=== PATIENT | male | born 1980 | race Caucasian/White ===

== ENCOUNTER 2021-08-24 08:29 | Outpatient (CLI) | payer BC, SELFPAY ==
[2021-08-24 12:07] LABS: Cholesterol* 234 mg/dL (90-199); Glucose* 102 mg/dL (60-115); HDL Cholesterol* 47 mg/dL (>=40); LDL Cholesterol Calculated 160 mg/dL (<100); Triglycerides* 135 mg/dL (40-149)
== END 2021-08-24 08:30 | disposition home or self-care (01) ==
LOC: NFLDREF 08:30
PROVIDERS: PCP Family Medicine; Visit Provider Family Medicine
DX: Z00.00 Encounter for general adult medical examination without abnormal findings (principal); Z13.1 Encounter for screening for diabetes mellitus; Z13.6 Encounter for screening for cardiovascular disorders
CPT/HCPCS: 80061; 82947

== ENCOUNTER 2021-09-15 15:30 | Outpatient (CLI) | payer BC, SELFPAY ==
--- NOTE | 2021-09-15 15:30 | MR_ITS ---
[address] [address] Phone:?[phone] Fax:?[phone] Referring Physician Information: Ez Grey [address] [facility] [address] Phone:?[phone] Fax:?[phone] Patient:Patrick Belcher D.O.B:?1980 Sex:?Male Phone:?[phone] [facility] MRN:?[id number] Exam Date:?09/15/2021 ? EXAM: MRI of the RIGHT HAND, without contrast CLINICAL INFORMATION: Male, 41 years old, with pain INDICATION: Right hand ganglion PRIOR SURGERY: None reported. PLAIN FILMS: None available. COMPARISONS: No prior MRIs available. TECHNICAL INFORMATION: Using a 1.5T MR scanner and a localizing surface coil: coronals: PD, T2, STIR sagittals: PD, T2 axials: PD, T2 SEDATION: None. CONTRAST: None. FINDINGS: Osseous structures of the right hand included are unremarkable without stress/occult fractures, bone marrow edema or osseous mass. The joints of the hand included are intact without pathologic narrowing or effusions. Collateral capsuloligamentous structures of the joints appear intact. Flexor and extensor tendons are intact, without rupture, tendinopathy, tenosynovitis or longitudinal splitting. Musculature of the hand appears unremarkable without masses, rupture or strain. Ganglion is seen along the dorsal ulnar aspect of the long finger PIP joint measuring approximately 0.8 x 0.5 x 1.1 cm (sagittal series 6.1 image 19, and axial series 3.2 image 55). Additional ganglion underlying the skin marker along the dorsal metacarpal head measuring 0.9 x 0.5 cm (axial series 3.2 image 82, and sagittal series 6.2 image 75). Additional smaller ganglion along the dorsal ulnar aspect of the base of the thumb distal phalanx measuring 0.6 x 0.3 cm. Subcutaneous ganglion along the dorsal third MCP joint measuring 1.3 x 0.7 x 0.3 cm (sagittal series 6.2 image 58, and axial series 3.2 image 77). IMPRESSION: 1. Multifocal ganglia associated with right hand, including: * Dorsal ulnar aspect of the long finger PIP joint * Dorsal thumb metacarpal head * Dorsal ulnar base of the thumb distal phalanx * Dorsal third MCP joint 2. No stress/occult fracture or other marrow edema/pathology. 3. No arthropathy or pathologic effusion of the joints of the visualized hand. 4. Flexor and extensor tendons are intact. KME Electronically signed on 09/21/2021 12:01:00 PM by Natalie Still M.D.
== END 2021-09-15 15:31 | disposition home or self-care (01) ==
PROVIDERS: PCP Family Medicine; Visit Provider Physician Assistant Surgical
DX: M67.441 Ganglion, right hand (principal)
CPT/HCPCS: 73218

== ENCOUNTER 2021-09-29 07:46 | Day surgery (SDC) | payer BC, SELFPAY ==
[2021-09-29] VITALS (12 sets, daily range): BP systolic 115–130; BP diastolic 84–95; PULSE 49–62; RESP 16; TEMP 36.4–36.6; O2SAT 96–98; BMI 28.4
[2021-09-29] MEDS: lidocaine HCL 2 % MULTIDOSE 20 ML VIAL INJECTION (09:50)
[2021-09-29] MEDS: BUPIVACAINE 0.5% 30 ML INJECTION (09:50)
--- NOTE | 2021-09-29 10:18 | P.ORPRC_ITS ---
Procedure Note Date of procedure: 09/29/21 Procedure: Preop diagnosis: Right hand middle finger mucous cyst Postop diagnosis: Right hand middle finger mucous cyst Procedure: DIP joint debridement Anesthesia: Local Surgeon: Sergio Mckenna MD assistant operations manager: HERRERA Marshall EBL: 5 mL Complications: None Specimens: None Drains: None Indications: The patient has a history of right hand middle finger mucous cyst. Despite appropriate nonoperative management they continue to have symptoms. Operative intervention was recommended. The risks, benefits alternatives and expected outcomes were discussed in detail. These included but were not limited to: Infection, bleeding, injury to blood vessel or nerve, venous thromboembolism. All questions were answered to their satisfaction. The patient was placed supine on the operating room table. Local anesthesia was established with a digital block using 0.5% Marcaine without epinephrine and 2% lidocaine without epinephrine. The hand was prepped and draped in usual sterile fashion. The finger was exsanguinated, a quarter-inch Cheyenne was used at the base of the finger as a tourniquet. A Roberto incision was made over the dorsum of the DIP joint. Tenotomy scissors were used for deep dissection down to the extensor mechanism. A full-thickness, ulnar based skin flap was elevated. The deep side of the cyst was entered with the 15 blade. Clear, gelatinous fluid was encountered. There was no obvious foreign body. There was no pur ulence. The cyst appeared to be emanating from the ulnar side of the DIP joint. We entered ulnar side of the joint with the 15 blade The Lempert rongeur was used to debride the corner of the middle phalanx and base of the distal phalanx to decompress the joint. The wound was irrigated with normal saline. It was closed with a 3-0 nylon in an interrupted fashion. A soft dressing was applied. The Cheyenne was released. Sponge and needle counts were correct x 2. The patient tolerated the procedure well, there were no apparent complications. They were sent to same day surgery in satisfactory condition. Plan: Use of the hand as tolerates. Discontinue the intraoperative dressing on postoperative day 3 and may get the wound wet as tolerates. Follow up in the office in 2 weeks for a wound check and suture removal.
== END 2021-09-29 10:40 | disposition home or self-care (01) ==
PROVIDERS: PCP Family Medicine; Visit Provider Orthopaedic Surgery
PROC: (CPT 26160; principal; 2021-09-29 10:00)
DX: M67.441 Ganglion, right hand (principal)
CPT/HCPCS: 26160; J3490